=== PATIENT | female | born 1955 | race Caucasian/White ===

== ENCOUNTER 2016-07-12 05:18 | Inpatient (IN) | payer OTHER ==
[2016-07-07 15:15] VITALS: BMI 32.0
--- NOTE | 2016-07-11 13:26 | HISTORY & PHYSICAL EXAMINATION ---
DATE OF ADMISSION: 07/12/2016 CHIEF COMPLAINT: Left knee pain. HISTORY OF PRESENT ILLNESS: Ms. Khan is a 60-year-old female with a 3 year history of pain in her left knee. The patient rates her pain a 9/10. She has pain with her daily activities. She has limited standing and walking tolerance. Pain is worse with weightbearing. The patient has had her right knee replaced and is now ready to proceed with the left side. PAST MEDICAL HISTORY: Acid reflux. She denies heart disease, diabetes or DVT. PAST SURGICAL HISTORY: Discectomy and Achilles tendon repair and ankle reconstruction, right TKA. SOCIAL HISTORY: The patient drinks socially. She denies tobacco use. She lives in a single story home. She is and retired. FAMILY HISTORY: Negative for DVT. MEDICATIONS: L-thyroxine 125 mcg, omeprazole 40 mg, Eye drops 2.5 mL 1 drop each eye at bedtime, Vitafusion and Advil p.r.n. ALLERGIES: PENICILLIN, SULFA REVIEW OF SYSTEMS: See HPI. Ten other systems reviewed, all negative. PHYSICAL EXAMINATION: VITAL SIGNS: Height 5 foot 2, weight 185 pounds, BMI is 34. GENERAL: This is a well-developed, well-nourished female who is alert and oriented x3. Mood and affect are appropriate. HEENT: Normocephalic, atraumatic. Mucous membranes are moist and intact. NECK: Supple without lymphadenopathy. HEART: Regular rate and rhythm without murmurs, rubs or gallops. LUNGS: Clear to auscultation without wheezes or rhonchi. ABDOMEN: Soft and nontender. Bowel sounds are equal and active. EXTREMITIES: Left knee shows neutral alignment. Range of motion is from 5-105 degrees with +1 laxity. She is neurovascularly intact with +5/5 strength. X-RAY EXAMINATION: AP and lateral views show joint space narrowing and osteophyte formation. IMPRESSION: Degenerative joint disease left knee. PLAN: The patient will be admitted for a left total knee arthroplasty. We will plan on aspirin for DVT prophylaxis. She is doing outpatient physical therapy. [facility]
[2016-07-12] VITALS (9 sets, daily range): BP systolic 105–126; BP diastolic 61–99; PULSE 53–80; TEMP 36.4–36.8; O2SAT 94–99; Ht 157.5 cm; Wt 79.1 kg
[~2016-07-12] VITALS: Ht 157.5 cm; Wt 79.1 kg
[~2016-07-12 05:18] MED LIST: CLB/200 PO; LATA0.009 OP; LEVO125T4 PO; OMEP40CA PO
[2016-07-12] MEDS ORDERED: METOCLOPRAMIDE HCL 10 MG TAB PO SCH (06:00)
[2016-07-12] MEDS ORDERED: SCOPOLAMINE 1.5 MG TDSY TD SCH (06:00)
[2016-07-12] MEDS ORDERED: OXYCODONE HCL 10 MG TABCR (OXYCONTIN) PO SCH (06:00)
[2016-07-12] MEDS ORDERED: DEXAMETHASONE 4 MG TAB PO SCH (06:00)
[2016-07-12] MEDS ORDERED: LACTATED RINGER'S 1000ML 1,000 ML IV SCH ×2 (06:00)
[2016-07-12] MEDS ORDERED: GABAPENTIN 300 MG CAP PO SCH (06:00)
[2016-07-12] MEDS ORDERED: FAMOTIDINE 20 MG TAB PO SCH (06:00)
[2016-07-12] MEDS ORDERED: ACETAMINOPHEN 500 MG TAB PO SCH (06:00)
[2016-07-12] MEDS ORDERED: VANCOMYCIN INJ 400 MG in NSS 100ML IR SCH (06:00)
[2016-07-12] MEDS ORDERED: ROPIVACAINE 5MG/ML 30 ML 150 MG, BUPIVACAINE/EPINEPHR 0.5% MPF 30 ML, KETOROLAC TROMETH... INFIL SCH ×7 (06:00)
[2016-07-12] MEDS ORDERED: CLINDAMYCIN 600 MG/54 ML D5W 54 ML IV SCH (06:00)
[2016-07-12] MEDS ORDERED: POLYMYXIN B SULFATE 100,000 UNITS in NSS 100ML IR SCH (06:00)
[2016-07-12] MEDS: TRANEXAMIC ACID INJ 1,000 MG in SODIUM CHLORIDE 0.9% 100ML 100 ML IV SCH ×2 (06:14→06:30)
[2016-07-12] MEDS ORDERED: BUPIVACAINE 0.5 % 5 MG/1 ML PF 10ML VIAL ONE (06:29)
[2016-07-12] MEDS ORDERED: BUPIVACAINE 0.25% 30 ML VIAL ONE (06:29)
[2016-07-12] MEDS ORDERED: MIDAZOLAM HCL 1 MG/ML 2ML VIAL ONE ×2 (06:44→07:33)
[2016-07-12] MEDS ORDERED: FENTANYL CITRATE INJ 50 MCG/1 ML 2 ML VIAL ONE ×2 (06:44→07:40)
[2016-07-12] MEDS ORDERED: ORTHO JOINT ANESTHETIC ONE (06:55)
[2016-07-12] MEDS ORDERED: ONDANSETRON INJ 2 MG/ML 2 ML VIAL IV PRN ×2 (07:00→08:30)
[2016-07-12] MEDS ORDERED: EpHEDrine SULFATE INJ 50 MG/ML AMP IV PRN (07:00)
[2016-07-12] MEDS ORDERED: ATROPINE SULFATE 0.1 MG/ML 5ML SYR IV PRN (07:00)
[2016-07-12] MEDS ORDERED: FENTANYL CITRATE INJ 50 MCG/1 ML 2 ML VIAL IV PRN (07:00)
--- NOTE | 2016-07-12 07:03 | History & Physical Bridge Note ---
H&P Re-Evaluation Bridge Note: I have examined the patient, reviewed the History & Physical and in the interval since the performance of the History & Physical I have noted the following changes of clinical significance: No changes noted
[2016-07-12] MEDS ORDERED: PROPOFOL IV EMULSION 10 MG/ML 20 ML VIAL IV ONE (07:29)
[2016-07-12] MEDS ORDERED: LIDOCAINE HCL 2% 2 ML VIAL (20MG/ML) ONE (07:29)
[2016-07-12] MEDS ORDERED: PHENYLEPHRINE 100MCG/ML 5ML SYR ONE (07:47)
[2016-07-12] MEDS ORDERED: EpHEDrine SULFATE 50MG/5ML SYR ONE (07:54)
[2016-07-12] MEDS ORDERED: BACITRACIN 50000 UNIT VIAL IR ONE (08:14)
[2016-07-12] MEDS ORDERED: BUPIVACAINE/EPINEPHRINE 0.25% 1:200,000 30 ML VIAL INJ ONE (08:14)
--- NOTE | 2016-07-12 08:24 | [facility] Post Operative Brief Note ---
Immediate Operative Summary Operative Date Jul 12, 2016. Pre-Operative Diagnosis Left Knee Degenerative Joint Disease Post-Operative Diagnosis Left Knee Degenerative Joint Disease Procedure(s) Performed Left Total Knee Arthroplasty Cemented Surgeon Dr. Ernesto Bennett Oncology Technician Surgeon(s) Maxwell Manuel PA-C Estimated Blood Loss 50 Findings DJD Specimens A. Left Knee Bone and Tissue Complication(s) None Disposition Recovery Room / PACU
[2016-07-12] MEDS ORDERED: TRAMADOL HCL 50 MG TAB PO PRN (08:30)
[2016-07-12] MEDS ORDERED: MoRPHine SULFATE 2 MG/ML CARP IV PRN (08:30)
[2016-07-12] MEDS ORDERED: MAGNESIUM HYDROXIDE SUSP 30 ML UDC PO PRN (08:30)
[2016-07-12] MEDS ORDERED: ALUMINUM/MAGNESIUM/SIMETH (MAALOX MAX) 30 ML UDC PO PRN (08:30)
[2016-07-12] MEDS ORDERED: DiphenhydrAMINE HCL 50 MG/ML VIAL IV PRN (08:30)
[2016-07-12] MEDS ORDERED: SOD PHOSPHATE/SOD BIPHOSPHATE ENEMA 132 ML BTL PR PRN (08:30)
[2016-07-12] MEDS ORDERED: METOCLOPRAMIDE HCL INJ 5 MG/ML 2 ML VIAL IV PRN (08:30)
[2016-07-12] MEDS ORDERED: BISACODYL 10 MG SUPP PR PRN (08:30)
[2016-07-12] MEDS ORDERED: ZOLPIDEM TARTRATE 5 MG TAB PO PRN (08:30)
[2016-07-12] MEDS ORDERED: POVIDONE-IODINE OP SOLN 30 ML BTL TOP ONE (08:33)
[2016-07-12] MEDS: ASPIRIN 81 MG ECTAB PO SCH ×2 (09:00→21:28)
[2016-07-12] MEDS: LEVOTHYROXINE 125 MCG TAB PO SCH (09:00)
[2016-07-12] MEDS: MULTIVITAMIN TAB PO SCH (09:00)
[2016-07-12] MEDS: PANTOprazole SOD 40 MG TAB PO SCH (09:00)
--- NOTE | 2016-07-12 09:47 | Anesthesiology Progress Note ---
Anesthesia Post Op Note Date & Time Jul 12, 2016 at 09:47 Vital Signs Pain Intensity: 0 Vital Signs Past 12 Hours Date Time Temp Pulse Resp B/P Pulse Ox O2 Delivery O2 Flow Rate FiO2 07/12/16 09:40 72 18 98/43 99 Nasal Cannula 2 07/12/16 09:30 65 17 109/55 98 Nasal Cannula 2 07/12/16 09:20 67 11 101/54 99 Nasal Cannula 2 07/12/16 09:10 68 13 105/67 99 Nasal Cannula 2 07/12/16 09:03 36.8 74 16 101/51 97 Nasal Cannula 2 07/12/16 05:45 36.7 78 58 120/99 98 Room Air Notes Mental Status: alert / awake / arousable, participated in evaluation Pt Amnestic to Procedure: Yes Nausea / Vomiting: adequately controlled Pain: adequately controlled Airway Patency, RR, SpO2: stable & adequate BP & HR: stable & adequate Hydration State: stable & adequate Neuraxial Anesthesia: was administered, sensory block is resolving Anesthetic Complications: no major complications apparent
--- NOTE | 2016-07-12 09:51 | DIAGNOSTIC IMAGING REPORT ---
LEFT KNEE 1 OR 2 VIEWS ROUTINE CLINICAL HISTORY: Postop examination COMPARISON: None. DISCUSSION: There are postsurgical changes of a total left knee arthroplasty and patellar resurfacing. The femoral and tibial components appear well seated. Overlying surgical drains are evident. There are no acute fractures. There is air within soft tissues consistent with recent surgery IMPRESSION: Postsurgical changes of a total left knee arthroplasty Electronically signed by: Rico Willett M.D. 07/12/2016 9:49 AM Dictated Date/Time: 07/12/2016 9:48 AM
[2016-07-12] MEDS: D5W AND 1/2NSS + 20MEQ KCL 1,000 ML IV SCH ×2 (13:23→23:23)
[2016-07-12] MEDS: ACETAMINOPHEN 500 MG TAB PO SCH ×2 (14:25→21:30)
[2016-07-12] MEDS ORDERED: TRANEXAMIC ACID INJ 1,000 MG in SODIUM CHLORIDE 0.9% 100ML 100 ML IV SCH (15:00)
[2016-07-12] MEDS: CLINDAMYCIN IV 600 MG in DEXTROSE 5% ADD-VANTAGE 50ML 50 ML IV SCH ×2 (16:59→23:31)
[2016-07-12] MEDS: CHECK SCOPOLAMINE PATCH PLACEMENT SCH ×2 (17:00→23:31)
--- NOTE | 2016-07-12 17:37 | OPERATIVE REPORT ---
DATE OF OPERATION: 07/12/2016 PREOPERATIVE DIAGNOSIS: Degenerative arthritis, left knee. POSTOPERATIVE DIAGNOSIS: Same. PROCEDURE: Left total knee with patient matched implant. SURGEON: Maldonado Bennett MD JOY LOADING MACHINE OPERATOR: Farida Baldwin PA-C. ANESTHESIA: Spinal. BLOOD LOSS: 50 mL. REPLACEMENT FLUIDS: 1700 mL crystalloid. DRAINS: Hemovac x2. CULTURES: None. COMPLICATIONS: None. COMPONENTS USED: [employer] Knee System: Femur size 4, tibia size 2 x 11, and patella size 32. NOTE: Farida Baldwin PA-C was present and assisted throughout due to the complicated nature of this case. He helped with preparation and set up, first assisted throughout and personally closed the capsule, subcutaneous and skin layers and applied the postoperative dressing. DESCRIPTION OF PROCEDURE: Following satisfactory spinal, the patient was supine. A tourniquet was placed, but not inflated. The lower extremity was prepared with ChloraPrep and draped sterilely. The midline incision was made with a trivector approach. The knee showed severe grade 4 changes most marked in the medial and patellofemoral compartments. The patient matched femoral block was applied. Femoral distal rotation was set and completed. The 4-in-1 block was finished preparation of the femur. The patient matched tibial block was applied. Tibial resection was completed. The patella was freehand cut. Soft tissue balancing was completed and the knee showed good tensioning stability on the collateral ligaments, stable range of motion, and the patella tracked well. The trial components were removed. The orthopedic cocktail was placed and after irrigation, the components were cemented with Simplex G cement. A Betadine soak was performed. When the cement had hardened, the Betadine was irrigated. Two drains were placed. The arthrotomy was closed with a running suture of 0 V-Loc. The subcutaneous tissues with 2-0 Vicryl and the skin with a running subcuticular stitch of 3-0 V-Loc. Dermabond and a dry dressing were applied. The patient was returned to her bed in stable condition. I attest to the content of the Intraoperative Record and any orders documented therein. Any exceptio ns are noted below.
[2016-07-12] MEDS ORDERED: LATANOPROST 0.005% OP SOLN 2.5 ML BTL OP SCH (21:00)
[2016-07-12] MEDS ORDERED: SENNA 8.6 MG TAB PO SCH (21:00)
[2016-07-12] MEDS: OXYCODONE HCL 10 MG TABCR (OXYCONTIN) PO SCH (21:28)
[2016-07-12] MEDS: OXYCODONE HCL IR 5 MG TAB (IMMEDIATE RELEASE) PO PRN (21:29)
[2016-07-13] MEDS: KETOROLAC TROMETHAMINE 30 MG/ML VIAL IV. PRN ×2 (02:22→09:13)
[2016-07-13 04:00] VITALS: BP_SYST 102; BP_SYST 90; BP_DIAS 53; BP_DIAS 61; PULSE 75; TEMP 36.8; O2SAT 97
[2016-07-13] MEDS: ACETAMINOPHEN 500 MG TAB PO SCH ×2 (05:46→13:57)
[2016-07-13] MEDS: LEVOTHYROXINE 125 MCG TAB PO SCH (05:47)
[2016-07-13] MEDS: OXYCODONE HCL IR 5 MG TAB (IMMEDIATE RELEASE) PO PRN ×3 (05:48→13:56)
[2016-07-13 06:08] LABS: RED BLOOD COUNT 3.81 M/uL (4.2-5.4); WHITE BLOOD COUNT 15.52 K/uL (4.8-10.8)
[2016-07-13 06:09] LABS: HEMATOCRIT 33.6 % (37-47); MEAN CELL VOLUME 88.2 fL (80-100); MEAN CORPUSCULAR HEMOGLOBIN 29.4 pg (25-34); MEAN CORPUSCULAR HGB CONC 33.3 g/dl (32-36); MEAN PLATELET VOLUME 8.9 fL (7.4-10.4); PLATELET COUNT 283 K/uL (130-400)
[2016-07-13 06:34] LABS: BUN/CREATININE RATIO 22.6 (10-20); CALCIUM 9.1 mg/dl (8.5-10.1); CREATININE 0.54 mg/dl (0.60-1.20); POTASSIUM 4.4 mmol/L (3.5-5.1)
[2016-07-13 07:16] VITALS: BP 95/62; PULSE 48; TEMP 36.6; O2SAT 97
--- NOTE | 2016-07-13 07:45 | Discharge Instructions ---
Discharge Instructions Admission Reason for Admission: Left Knee Degenerative Arthritis Discharge Discharge Diagnosis / Problem: sp left TKA Discharge Goals Goal(s): Decrease discomfort, Improve function, Increase independence Activity Recommendations Activity Limitations: per Instructions/Follow-up section . Instructions / Follow-Up Instructions / Follow-Up ACTIVITY RECOMMENDATIONS: SELF CARE INSTRUCTIONS AFTER TOTAL KNEE REPLACEMENT A. You may need to continue a physical therapy program after discharge from the hospital. There are several options available to you. Your doctor will assist you in selecting the best one for you. 1. An out-patient facility 2 to 3 times a week for therapy or home therapy. 2. Continue working on all exercises taught to you in the hospital. Your goals should be to increase bending of your knee to 90 degrees and beyond and to fully straighten your knee. B. You may progress at your own pace from walking with a walker or crutches to a cane; then to no assistive devices. C. Make walking a part of your daily routine. Be up as much as comfortable with rest periods throughout the day. Rest with leg elevation is very important. Use the ice wrap frequently for the first 3-4 weeks. D. There are no restrictions on activities. You may ride in a car, shop, participate in manager wound and all social activities. E. Wear the long elastic stockings (MARLY hose) 20 hours a day for 2 weeks after surgery. They can be removed several times a day for laundering and for a bath. F. You may shower, no tub baths until cleared by your doctor. SPECIAL CARE INSTRUCTIONS: VERY IMPORTANT TO READ AND REVIEW A. There are a few signs you need to watch for after you are home. Call [facility] [place] if you notice any of the followin. Increased severe knee pain. Some pain is expected especially when you exercise. 2. Increased swelling in your leg or knee; pain or swelling of the calf muscle in either lower leg. 3. Any fluid drainage from the incision. 4. Shortness of breath or chest pain. B. Please call [facility] [place] at if you have any concerns or questions about your operation or recovery. The doctor or his nurse will return your call promptly. C. You must take antibiotics before dental work, bladder, bowel or other surgery. Your doctor will provide you with a permanent care to carry describing this precaution. IMPORTANT: * REMEMBER TO TAKE ASPIRIN, 81 MG, TWICE DAILY FOR 4 WEEKS UNLESS OTHERWISE DIRECTED. THIS IS YOUR BLOOD THINNER. * HIGH RISK PATIENTS MAY BE PRESCRIBED A STRONGER BLOOD THINNER. THIS WILL BE PROVIDED AT DISCHARGE. * CALL IF INCREASED PAIN, REDNESS, DRAINAGE OR FEVER GREATER THAT 101. * WEAR MARLY HOSE 20 HOURS PER DAY FOR 2 WEEKS. DERMABOND Prineo- This is a mesh tape dressing that is covered with glue. It should remain in place until the incision is properly healed, usually 10-14 days. This dressing is designed to naturally slough off. You may trim the excess mesh tape as it peels off. Incision may be briefly wet in a shower. Dry immediately by blotting with a clean, dry towel. Do not bath or swim until instructed by your doctor. Do not scratch, rub, or pick at the dressing. Do not apply any topical ointments or lotions until dressing is completely removed and/or instructed by your doctor. There may be a small piece of suture material at one end of your incision. Do not pull or trim this. If it is bothersome or catching on clothing, you may cover it with a band-aid. FOLLOW UP VISIT: If appointment is not already scheduled: Please call [facility] [place] to make a follow-up appointment for 2 weeks after your surgery at . Current Hospital Diet Patient's current hospital diet: Regular Diet Discharge Diet Recommended Diet: Regular Diet Procedures Procedures Performed: Left Total Knee Arthroplasty Cemented Pending Studies Studies pending at discharge: no Medical Emergencies . Who to Call and When: Medical Emergencies: If at any time you feel your situation is an emergency, please call 911 immediately. . Non-Emergent Contact Non-Emergency issues call your: Primary Care Provider . "Provider Documentation" section prepared by Farida Baldwin. VTE Core Measure Inpt VTE Proph given/why not?: Other Anticoagulation, T.E.D. Stockings, SCD's
[2016-07-13] MEDS ORDERED: RXC5 PO (07:50)
[2016-07-13] MEDS ORDERED: MORP-157 PO (07:50)
[2016-07-13] MEDS ORDERED: ACET-1138 PO (07:50)
[2016-07-13] MEDS ORDERED: ONDA8TAB6 PO (07:50)
[2016-07-13] MEDS ORDERED: ASPEC81 PO (07:50)
[2016-07-13] MEDS ORDERED: CLB/200 PO (07:50)
[2016-07-13] MEDS ORDERED: SNK PO (07:50)
[2016-07-13] MEDS: CHECK SCOPOLAMINE PATCH PLACEMENT SCH (08:19)
--- NOTE | 2016-07-13 08:31 | Orthopedic Progress Note ---
Orthopedic Progress Note Date of Service Jul 13, 2016. Subjective Post OP Day: 2 Reports: feeling well, Denies: SOB, calf pain, chest pain, light headedness, nausea / vomiting Objective calves soft nontender, N/V intact, dressing C/D/I, A&O x3, toes mobile, hemovac drainage (345/150) Date Time Temp Pulse Resp B/P Pulse Ox O2 Delivery O2 Flow Rate FiO2 07/13/16 07:16 36.6 48 17 95/62 97 Room Air 07/13/16 07:00 Room Air 07/13/16 04:00 36.8 75 16 90/53 97 Room Air 102/61 07/12/16 23:30 36.4 53 17 118/67 97 Room Air 07/12/16 23:30 Room Air 07/12/16 19:26 36.4 69 18 110/66 99 Room Air 07/12/16 16:00 Room Air 07/12/16 15:29 36.8 80 18 105/62 94 Room Air 07/12/16 13:07 36.5 75 16 110/64 98 3.0 07/12/16 12:18 36.5 70 16 120/73 98 Room Air 07/12/16 11:11 77 16 118/72 99 3.0 07/12/16 10:35 72 16 119/73 99 3.0 07/12/16 10:05 98 Nasal Cannula 2.0 07/12/16 10:05 Nasal Cannula 2.0 07/12/16 10:05 36.5 78 18 126/61 98 Nasal Cannula 2.0 07/12/16 09:55 78 16 117/59 97 Nasal Cannula 2 07/12/16 09:50 36.2 65 19 102/59 97 Nasal Cannula 2 07/12/16 09:40 72 18 98/43 99 Nasal Cannula 2 07/12/16 09:30 65 17 109/55 98 Nasal Cannula 2 07/12/16 09:20 67 11 101/54 99 Nasal Cannula 2 07/12/16 09:10 68 13 105/67 99 Nasal Cannula 2 07/12/16 09:03 36.8 74 16 101/51 97 Nasal Cannula 2 Laboratory Results 24 Hours: Test 07/13/16 05:36 Hematocrit 33.6 % Hemoglobin 11.2 g/dL Assessment & Plan Assessment: POD#1 SP LEFT TKA Inhouse Planning Pain Management: Celebrex, Oxycontin, PO Tylenol, Oxy IR DVT Prophylaxis: TEDs, SCDs, ASA Discharge Planning Discharge Planning: home with oppt ([facility] TODAY )
[2016-07-13] MEDS: D5W AND 1/2NSS + 20MEQ KCL 1,000 ML IV SCH (09:07)
[2016-07-13] MEDS: MULTIVITAMIN TAB PO SCH (09:07)
[2016-07-13] MEDS: PANTOprazole SOD 40 MG TAB PO SCH (09:07)
[2016-07-13] MEDS: ASPIRIN 81 MG ECTAB PO SCH (09:08)
[2016-07-13] MEDS: OXYCODONE HCL 10 MG TABCR (OXYCONTIN) PO SCH (09:13)
--- NOTE | 2016-07-13 09:47 | Anesthesiology Progress Note ---
Anesthesia Post Op Note Date & Time Jul 13, 2016 at 09:46 Vital Signs Pain Intensity: 2.0 Vital Signs Past 12 Hours Date Time Temp Pulse Resp B/P Pulse Ox O2 Delivery O2 Flow Rate FiO2 07/13/16 07:16 36.6 48 17 95/62 97 Room Air 07/13/16 07:00 Room Air 07/13/16 04:00 36.8 75 16 90/53 97 Room Air 102/61 07/12/16 23:30 36.4 53 17 118/67 97 Room Air 07/12/16 23:30 Room Air Notes Mental Status: alert / awake / arousable, participated in evaluation Pt Amnestic to Procedure: Yes Nausea / Vomiting: adequately controlled Pain: adequately controlled Airway Patency, RR, SpO2: stable & adequate BP & HR: stable & adequate Hydration State: stable & adequate Neuraxial Anesthesia: sensory block resolved Anesthetic Complications: no major complications apparent
[2016-07-13 11:02] VITALS: BP_SYST 102; BP_SYST 133; BP_DIAS 67; BP_DIAS 71; PULSE 63; PULSE 69; TEMP 36.5; TEMP 37.2; O2SAT 91; O2SAT 98
[2016-07-13 13:48] VITALS: BP 102/67; PULSE 63; TEMP 36.5; O2SAT 98
[2016-07-14] MEDS ORDERED: CeleBREX 200 MG CAP PO SCH (09:00)
--- NOTE | 2016-07-29 10:51 | DISCHARGE SUMMARY ---
DISCHARGE DIAGNOSIS: Degenerative joint disease left knee. SECONDARY DIAGNOSIS: None. CONSULTS: None. COMPLICATIONS: None. PROCEDURE: The patient underwent a left total knee arthroplasty with Dr. Bennett on 07/12/2016. BRIEF HISTORY: Please see previously dictated history and physical. HOSPITAL SUMMARY: The patient was admitted on the above day for the above procedure. Procedure went without complication. Postop day 1, the patient was comfortable without complaints. She denied chest pain or shortness of breath. Vital signs were stable. She was afebrile. Dressing was clean, dry and intact. She was neurovascularly intact. Calves were soft and nontender. Hemovac drained 345 and 150 mL per shift. Hemoglobin was 11.2. The patient began physical therapy per protocol and was discharged to home later that day in stable condition. For further review please see the chart. Lab, x-ray data and discharge instructions as per chart.
== END 2016-07-13 14:29 | disposition home or self-care (01) | DRG 470 ==
LOC: ENRESERVDT → ENRESERVTM → C.ACU 05:18 → C.3E 08:27
PROVIDERS: ADMIT Orthopaedic Surgery; ATTEND Orthopaedic Surgery
PROC: 0SRD0J9 Replacement of Left Knee Joint with Synthetic Substitute, Cemented, Open Approach (ICD-10-PCS; principal; 2016-07-12 07:15)
DX: M17.12 Unilateral primary osteoarthritis, left knee (principal); K21.9 Gastro-esophageal reflux disease without esophagitis; E03.9 Hypothyroidism, unspecified; H40.9 Unspecified glaucoma; E66.9 Obesity, unspecified; Z68.34 Body mass index [BMI] 34.0-34.9, adult; Z96.651 Presence of right artificial knee joint; Z87.892 Personal history of anaphylaxis; Z88.4 Allergy status to anesthetic agent; Z79.1 Long term (current) use of non-steroidal anti-inflammatories (NSAID); Z79.899 Other long term (current) drug therapy